=== PATIENT | female | born 1975 | race Hispanic/Latino ===

== ENCOUNTER 2018-03-04 20:42 | Emergency (ER) | payer SELFPAY ==
[2018-03-04] MEDS ORDERED: POVIDONE IODINE 10 % 15 ML UD TOP ONE (20:48)
[2018-03-04] MEDS ORDERED: LIDOCAINE 1% 10 ML VIAL INJ ONE (20:48)
[2018-03-04] MEDS ORDERED: TETANUS,DIPHTHERIA,PERTUSSIS 1 EA SYG IM ONE (21:17)
[2018-03-04] MEDS ORDERED: traMADol HCL 50 MG (ER DISP) # 6 TABS PO ONE (21:17)
[2018-03-04 21:20] VITALS: TEMP 97.9; O2SAT 99
--- NOTE | 2018-03-04 21:20 | ED.PDOC ---
History of Present Illness - General Chief Complaint: Laceration Stated Complaint: laceration to fifth digit Time Seen by Provider: 03/04/18 21:17 Source: patient Exam Limitations: no limitations - History of Present Illness Initial Comments: Patient sustained cut to her right ring finger while cutting an avocado. No past medical history and no other complaints. Timing/Duration: just prior to arrival Severity: moderate Location: hands Improving Factors: nothing Worsening Factors: nothing Associated Symptoms: denies symptoms Review of Systems - Review of Systems Constitutional: States: no symptoms reported. Denies: chills, fever EENTM: States: no symptoms reported. Denies: nose congestion Respiratory: States: no symptoms reported. Denies: short of breath Cardiology: States: no symptoms reported. Denies: chest pain Gastrointestinal/Abdominal: States: no symptoms reported Physical Exam - Physical Exam General Appearance: Alert, No apparent distress Cardiovascular/Chest: regular rate, rhythm, no edema, no murmur Respiratory: chest non-tender, lungs clear, normal breath sounds Gastrointestinal/Abdominal: normal bowel sounds Extremity: other - V shaped laceration through the skin with no bone showing Procedures - Laceration/Wound Repair Right Finger Wound Length (cm): 2 - V shaped Wound's Depth, Shape: superficial Wound Explored: clean Irrigated w/ Saline (cc's): 5 Betadine Prep?: Yes Anesthesia: 1% Lidocaine Volume Anesthetic (cc's): 1.5 - digital block Wound Debrided: minimal Wound Repaired With: sutures Suture Size/Type: 3:0, vicryl rapide Number of Sutures: 5 Layer Closure?: No Departure - Departure Clinical Impression: Laceration Disposition: Discharge to Home or Self Care Condition: Fair Departure Forms: ED Discharge - Pt. Copy, Patient Portal Self Enrollment Instructions: DI for Laceration Repair, DI for Laceration Repair -- Complex Suture Diet: regular diet Referrals: Dudley Figueroa MD [Primary Care Provider] - 1-2 Weeks Additional Instructions: dispensed ultram for tonight and tetanus given. Follow up for suture removal with PCP in 7-10 days. Return to ER/clinic for redness, swelling, or purulence from wound or temp >100.5
[2018-03-04 21:50] VITALS: BP 125/74
== END 2018-03-04 21:51 | disposition home or self-care (01) ==
LOC: ER 20:42
DX: S61.214A Laceration without foreign body of right ring finger without damage to nail, initial encounter (principal); Z23 Encounter for immunization; W45.8XXA Other foreign body or object entering through skin, initial encounter; Y92.9 Unspecified place or not applicable; Y93.G1 Activity, food preparation and clean up